=== PATIENT | female | born 1935 | race Caucasian/White ===

== ENCOUNTER 2017-09-05 11:50 | Observation (INO) | payer OTHER, BC ==
[~2017-09-05] VITALS: Ht 180.3 cm; Wt 82.6 kg
[~2017-09-05 11:50] MED LIST: ANASTROZOLE1 MG PO; ANUCORT-HC25 MG PR; ASPIR-LOW81 MG PO; CARDIZEM CD,CA240 MG PO; CARDIZEM CD120 MG PO; CITALOPRAM HBR20 MG PO; COL-RITE100 M1 PO; COLACE100 MG PO; DOCUSATE SODIU100 MG PO; DYAZIDE, MA1 CAPSULE PO; EFUDEX 5% CREAM25 GM TP; ERYTHROMYC1 APPLICAT BOTH EYES; INDERAL20 MG PO; K-DUR20 MEQ PO; MOTRIN IB200 MG PO; NEURONTIN100 MG PO; ONE DAILY FOR1 EAC3 PO; PERCOCET 5/31 TABLET PO; PROBIOTIC1 EAC2 PO; THERA TEARS30 ML BOTH EYES; TYLENOL EXTRA500 MG PO; VITAMIN D-32000 UNI2 PO; VITAMIN D31000 UNI2 PO; XANAX0.25 MG PO; [UNRECOGNIZED DRUG - OTHER]
[2017-09-05 13:01] LABS: HEMATOCRIT 42.7 % (36.0-46.0); MCH 32.1 PG (29.0-34.0); MCHC 33.3 G/DL (30.0-36.0); MCV 96.6 FL (83-99); MEAN PLAT.VOLUME 10.1 uM^3 (9.5-12.4); PLATELET COUNT 177 K/uL (156-360); RBC DIS.WIDTH-CV 12.5 % (11.8-14.6); RBC DIS.WIDTH-SD 44.8 % (39-53); RED BLOOD COUNT 4.42 M/uL (3.80-5.20); WHITE BLOOD COUNT 13.6 K/uL (4.1-10.2)
[2017-09-05 13:09] LABS: CHLORIDE 103 mEq/L (99-109); POTASSIUM 3.9 mEq/L (3.7-5.4); SODIUM 140 mEq/L (136-147)
[2017-09-05 13:10] LABS: GLUCOSE 115 mg/dL (70-99)
[2017-09-05 13:12] LABS: ANION GAP 9 MEQ/L (2-14)
[2017-09-05 13:14] LABS: GFR ESTIMATE (CALCULATED) > 59 mL/min/
[2017-09-05 13:15] LABS: UREA NITROGEN (BUN) 17 mg/dL (9-23)
[2017-09-05 15:00] LABS: TROP-I INTERPRETATION NEGATIVE; TROPONIN-I < 0.01 ng/mL (0.0-0.30)
[2017-09-05] MEDS ORDERED: CARTIA XT120 MG PO (16:02)
[2017-09-05] MEDS ORDERED: TRIAMTERENE-HC1 EAC1 PO (16:03)
[2017-09-05] MEDS ORDERED: POTASSIUM CHLO20 ME1 PO (16:03)
[2017-09-05] MEDS ORDERED: [UNRECOGNIZED DRUG - OTHER] PO (16:14)
[2017-09-05 17:15] VITALS: BP 187/77
[2017-09-05 19:30] VITALS: BP 133/63
[2017-09-05 23:45] VITALS: BP 132/62
[2017-09-06 00:44] LABS: TROP-I INTERPRETATION NEGATIVE; TROPONIN-I < 0.01 ng/mL (0.0-0.30)
[2017-09-06 03:29] VITALS: BP 145/70
[2017-09-06 05:29] LABS: TROP-I INTERPRETATION NEGATIVE; TROPONIN-I < 0.01 ng/mL (0.0-0.30)
[2017-09-06 07:03] VITALS: BP 128/58; BP 136/81
[2017-09-06 12:10] VITALS: BP 121/71
== END 2017-09-06 17:26 | disposition home or self-care (01) ==
LOC: EME 11:50 → EDOF 15:48 → 5WEST 15:48 → ENRESERV 15:50 → 5WEST 17:02
PROVIDERS: Internal Medicine
DX: R55 Syncope and collapse (principal); S06.5X9A Traumatic subdural hemorrhage with loss of consciousness of unspecified duration, initial encounter; I10 Essential (primary) hypertension; Z85.3 Personal history of malignant neoplasm of breast; I48.0 Paroxysmal atrial fibrillation; S06.6X9A Traumatic subarachnoid hemorrhage with loss of consciousness of unspecified duration, initial encounter; Z86.010 Personal history of colon polyps; Z79.82 Long term (current) use of aspirin; Z90.10 Acquired absence of unspecified breast and nipple; Z83.3 Family history of diabetes mellitus
CPT/HCPCS: 70450; 71020; 80048; 83880; 84484; 85027; 93005; 99281; 99285; G0378; G8987 GO CJ; G8988 CI; J7040